=== PATIENT | female | born 1935 | race Asian ===

== ENCOUNTER 2019-06-02 23:15 | Emergency (ER) | payer MEDICARE, BC ==
--- NOTE | 2019-06-02 23:22 | ED Physician Documentation ---
Fall - HISTORIAN Historian: patient - HPI Stated Complaint: fall and hit her head Chief Complaint: Fall Onset: just prior to arrival Where: home Context: other (not witnessed at correction ) Associated Symptoms:: no loss of consciousness Location of Pain/Injury: head Injury to Right Extremity: none Injury to Left Extremity: none Further Comments: yes (per report of EMS she was found down. The correction reported she was unconcious but she was alert to EMS) - ROS CONST: no problems NEURO: denies: dizziness MS/SKIN/LYMPH: other (she only repsonds to answers - which correction reports as normal ). denies: weakness, numbness - PAST HX Past History: other (dementia ) Allergies/Adverse Reactions: Allergies Allergy/AdvReac Type Severity Reaction Status Date / Time No Known Allergies Allergy Verified 06/03/19 00:30 Home Medications: Ambulatory Orders Medication Instructions Recorded Acetaminophen 650 mg PO TID u2 08/24/18 Bisacodyl [Dulcolax] 10 mg RC SEE.INSTRUCTIONS 08/24/18 Docusate Sodium [Colace] 100 mg PO BID #60 av 08/24/18 Ergocalciferol (Vitamin D2) 50,000 unit PO SEE.INSTRUCTIONS av 08/24/18 [Vitamin D2] Insulin Glargine,Hum.rec.anlog 5 unit SQ HS 08/24/18 [Lantus Solostar] Magnesium Hydroxide [Milk Of 400 mg PO SEE.INSTRUCTIONS 08/24/18 Magnesia] - SOCIAL HX Smoking History: non-smoker Alcohol Use: none Drug Use: none - FAMILY HX Family History: none - REVIEWED ASSESSMENTS Nursing Assessment Reviewed: Yes Vitals Reviewed: Yes Progress - Progress Progress: 0002: discussed care with [facility] Dr Horton he is accepting through ER - awaiting DNR paper work he DPOA is aware and has asked for transfer DG [id number]: Discussed labs with Dr Breaux DG Fall Physical Exam - Physical Exam General Appearance: no acute distress, alert Head: trauma (left scalp/forehad 3 cm raised hematoma ) Neck: non-tender, painless ROM Eye: RAAD ENT: nml external inspection Resp/CVS: chest non-tender, breath sounds nml, no resp. distress, heart sounds nml Abdomen: soft, no distension Neuro: other (she is alert and she will answer questions ) Joint: joints nml, nml ROM - Reny Coma Score Eyes Open: Spontaneous Speech: Oriented Motor: Obeys Commands Discharge Clincal Impression: Subdural hematoma Referrals: Primary Doctor,No [REFERRING] - 2 Days Comments: Transfer to [facility] Dr Horton accepting ER DG Condition: Critical Disposition: 02 XFER SHT-TRM HOSP Decision to Admit: NO Date of Decison to Admit: 06/03/19 Decision Time: 00:38
[2019-06-03] MEDS: 0.9 % SODIUM CHLORIDE 1,000 ML IV ONE (00:56)
[2019-06-03 01:21] VITALS: BP 151/82
[2019-06-03 06:38] LABS: BASOPHILS % 0.3 % (0.0-1.5); NEUTROPHILS # 7.4 # k/uL (1.4-7.7)
[2019-06-03 06:40] LABS: eGFR (Non-African) > 60
== END 2019-06-03 00:50 | disposition short-term general hospital (02) ==
LOC: ED 23:15
DX: S06.2X9A Diffuse traumatic brain injury with loss of consciousness of unspecified duration, initial encounter (principal); W01.198A Fall on same level from slipping, tripping and stumbling with subsequent striking against other object, initial encounter
CPT/HCPCS: 70450; 70486; 80053; 85025; 85610; 93005; 96360; 99282; 99283; S1016